=== PATIENT | male | born 1955 | race Two or more races ===

== ENCOUNTER 2019-05-28 00:02 | Emergency (ER) | payer MEDICARE, MEDICAID ==
[~2019-05-28] VITALS: Ht 165.1 cm; Wt 74.8 kg
[2019-05-28 00:09] VITALS: BP 123/85
[2019-05-28] MEDS ORDERED: TETRACAINE HCL/PF 0.5% UD 2 ML BOTTLE ONE (00:34)
== END 2019-05-28 01:38 | disposition home or self-care (01) ==
LOC: ER 00:16
DX: T15.01XA Foreign body in cornea, right eye, initial encounter (principal); I10 Essential (primary) hypertension; E11.40 Type 2 diabetes mellitus with diabetic neuropathy, unspecified; W45.8XXA Other foreign body or object entering through skin, initial encounter; Y93.89 Activity, other specified; Y92.89 Other specified places as the place of occurrence of the external cause; Y99.8 Other external cause status